=== PATIENT | female | born 1965 | race Caucasian/White ===

== ENCOUNTER → 2016-03-23 | Outpatient (CLI) | payer OTHER ==
[~2016-03-23] MED LIST: ASPIR 8181 M1 PO; ASPIRIN81 M1 PO; Aspirin PO; Atarax PO; BACLOFEN20 MG PO; BENADRYL A12.5 MG/5 PO; CARVEDILOL12.5 MG PO; CLONAZEPAM0.5 MG PO; COREG6.25 MG PO; CRESTOR40 MG PO; Coreg PO; DIAZEPAM5 MG PO; ENDOCET 5-3251 EACH PO; ESTRACE2 MG PO; FLEXERIL10 MG PO; FUROSEMIDE20 MG PO; HUMALOG SC; HUMALOG100 UNIT/1 SC; HUMALOG100 UNIT/2 SQ; HUMALOG100 UNITS/ SC; INSULIN PUMP SCCONT; KEFLEX500 MG PO; KEPPRA XR500 MG PO; Keppra PO; LASIX20 MG PO; LEVEMIR FL100 UNITS/ SC; LEVEMIR100 UNIT/1 SQ; LEVEMIR100 UNIT/2; LEXAPRO20 MG PO; LOSARTAN-HCTZ1 EAC1 PO; Levothroid,Synthroid PO; NEURONTIN300 MG PO; NOVOLOG PE100 UNITS/ SC; OMEPRAZOLE20 MG PO; OXYCODONE5 MG PO; PARAFON FORTE500 MG PO; PREMARIN1.25 MG PO; PRILOSEC20 MG PO; PriLOSEC PO; SYNTHROID125 MCG PO; SYSTANE 0.3-0.1 EACH OP; TOPAMAX25 MG; TOPAMAX25 MG PO; TOPAMAX50 MG PO; TRAMADOL HCL50 MG PO; Tylenol Regular Stre PO; VALIUM5 MG PO; VITAMIN B-6100 MG PO; VITAMIN B12-FO1 EACH PO; VITAMIN D2000 INTUN PO; VITAMIN D32000 UNI1 PO; VITAMIN D400 UNI2 PO; Vitamin D PO; XOPENEX HFA15 GM IH; ZEBUTAL 50-3251 EACH PO
== END | disposition home or self-care (01) ==
LOC: NUC 06:47
DX: R10.11 Right upper quadrant pain (principal)
CPT/HCPCS: 78227; A9537; J2805

== ENCOUNTER 2016-06-11 14:50 | Emergency (ER) | payer OTHER ==
[~2016-06-11] VITALS: Ht 152.4 cm; Wt 91.9 kg
[2016-06-11 17:12] LABS: HEMATOCRIT 31.2 % (36.0-46.0); MCH 28.3 PG (29.0-34.0); MCHC 33.7 G/DL (30.0-36.0); MCV 84.1 FL (83-99); MEAN PLAT.VOLUME 8.9 uM^3 (9.5-12.4); PLATELET COUNT 266 K/uL (156-360); RBC DIS.WIDTH-CV 12.8 % (11.8-14.6); RED BLOOD COUNT 3.71 M/uL (3.80-5.20); WHITE BLOOD COUNT 7.3 K/uL (4.1-10.2)
[2016-06-11 17:21] LABS: CHLORIDE 101 mEq/L (99-109); POTASSIUM 4.5 mEq/L (3.7-5.4); SODIUM 136 mEq/L (136-147)
[2016-06-11 17:22] LABS: GLUCOSE 120 mg/dL (70-99)
[2016-06-11 17:24] LABS: ANION GAP 8 MEQ/L (2-14)
[2016-06-11 17:26] LABS: GFR ESTIMATE (CALCULATED) 56 mL/min/
[2016-06-11 17:27] LABS: UREA NITROGEN (BUN) 22 mg/dL (9-23)
[2016-06-11 18:36] VITALS: BP 156/78
== END 2016-06-11 18:38 | disposition home or self-care (01) ==
LOC: EME 14:50
PROVIDERS: Emergency Medicine
DX: G24.02 Drug induced acute dystonia (principal); E11.9 Type 2 diabetes mellitus without complications; Z79.4 Long term (current) use of insulin
CPT/HCPCS: 70450; 80048; 85027; 99281; 99285; J1200

== ENCOUNTER 2017-10-19 14:55 | Emergency (ER) | payer OTHER ==
[~2017-10-19] VITALS: Ht 152.4 cm; Wt 87.5 kg
[2017-10-19 15:58] LABS: HEMATOCRIT 34.8 % (36.0-46.0); HEMOGLOBIN 11.8 G/DL (11.9-15.5); MCH 29.4 PG (29.0-34.0); MCHC 33.9 G/DL (30.0-36.0); MCV 86.8 FL (83-99); PLATELET COUNT 277 K/uL (156-360); RBC DIS.WIDTH-CV 13.3 % (11.8-14.6); RED BLOOD COUNT 4.01 M/uL (3.80-5.20); WHITE BLOOD COUNT 9.7 K/uL (4.1-10.2)
[2017-10-19 16:12] LABS: CHLORIDE 106 mEq/L (99-109); POTASSIUM 4.2 mEq/L (3.7-5.4); SODIUM 140 mEq/L (136-147)
[2017-10-19 16:13] LABS: GLUCOSE 113 mg/dL (70-99)
[2017-10-19 16:17] LABS: GFR ESTIMATE (CALCULATED) > 59 mL/min/
[2017-10-19 16:18] LABS: UREA NITROGEN (BUN) 16 mg/dL (9-23)
[2017-10-19 16:26] LABS: TROP-I INTERPRETATION NEGATIVE; TROPONIN-I < 0.01 ng/mL (0.0-0.30)
[2017-10-19 17:48] LABS: TROP-I INTERPRETATION NEGATIVE; TROPONIN-I < 0.01 ng/mL (0.0-0.30)
[2017-10-19 18:39] VITALS: BP 162/87
== END 2017-10-19 18:40 | disposition home or self-care (01) ==
LOC: EME 14:55
PROVIDERS: Emergency Medicine
DX: R07.89 Other chest pain (principal); E11.9 Type 2 diabetes mellitus without complications; Z96.41 Presence of insulin pump (external) (internal); J45.909 Unspecified asthma, uncomplicated; G43.909 Migraine, unspecified, not intractable, without status migrainosus; R56.9 Unspecified convulsions; K50.90 Crohn's disease, unspecified, without complications; Z90.710 Acquired absence of both cervix and uterus; Z88.1 Allergy status to other antibiotic agents; Z91.030 Bee allergy status
CPT/HCPCS: 71046; 80048; 84484; 85027; 85379; 93005; 99281; 99284